=== PATIENT | female | born 1990 | race Two or more races ===

== ENCOUNTER 2025-09-22 19:12 | Emergency (ER) | payer OTHER ==
[~2025-09-22] VITALS: Ht 157.5 cm; Wt 68.0 kg
[2025-09-22] MEDS ORDERED: PRENATAL + DHA1 EAC1 PO (19:57)
[2025-09-22] MEDS ORDERED: FAMOTIDINE/PF 20 MG in 0.9 % SODIUM CHLORIDE 8 ML IV PUSH ONE (21:45)
[2025-09-22] MEDS ORDERED: 0.9 % SODIUM CHLORIDE 1,000 ML IV SCH (21:45)
[2025-09-22] MEDS ORDERED: ACETAMINOPHEN 500 MG GEL..CAP PO ONE ×2 (21:45→21:48)
[2025-09-22] MEDS ORDERED: ONDANSETRON HCL 4 MG in 0.9 % SODIUM CHLORIDE 50 ML IV ONE (21:45)
[2025-09-22] MEDS ORDERED: ONDANSETRON HCL 2 MG/ML VIAL ONE (21:48)
[2025-09-22] MEDS ORDERED: FAMOTIDINE/PF 20 MG/2 ML VIAL ONE (21:49)
[2025-09-22 22:06] LABS: BASO % 0.6 % (0.1-1.2); EOS # 0.23 (0.04-0.54); EOS % 2.2 % (0.7-7.0); LYMPH # 2.23 (1.18-3.74); LYMPH % 21.8 % (19.3-53.1); MEAN PLATELET VOLUME 10.60 fl (9.4-12.4); MONO # 0.62 (0.24-0.82); MONO % 6.1 % (4.7-12.5); NEUT # 7.08 (1.56-6.13); NEUT % 69.1 % (34.0-71.1); RED CELL DISTRIBUTION WIDTH 12.2 % (11.6-14.4)
[2025-09-22 22:27] LABS: INR < 0.93
[2025-09-22 23:01] LABS: ALT/SGPT 19.0 U/L (12-78); AST/SGOT 13.0 U/L (15-37); BILIRUBIN TOTAL 0.4 mg/dL (0.3-1.2); BUN CREA RATIO 16.0 (7.0-25.0); CREATININE SERUM 0.57 mg/dL (0.55-1.02); GFR 121.41; GLOBULINA 3.7 G/DL (2.4-3.5); GLUCOSE FASTING 92.0 mg/dL (65-100); OSMOLALITY SERUM 278.0 MOSM/KG (275-295)
[2025-09-22 23:13] LABS: URINE APPEARANCE Clear; URINE BILIRRUBIN Negative (NEGATIVE); URINE BLOOD Negative; URINE COLOR Yellow; URINE GLUCOSE Negative (NEGATIVE); URINE KETONE Negative (NEGATIVE); URINE LEUKOCYTE Negative; URINE NITRATE Negative; URINE PROTEIN Negative (NEGATIVE); URINE UROBILINOGEN 0.2 E.U./dl
[2025-09-22 23:18] LABS: URINE BACTERIA 219.5 uL (0.0-1933); URINE EPITHELIAL CELLS 5.2 uL (0.0-38.8); URINE RBC 7.7 uL (0.0-20.8); URINE WBC 3.0 uL (0.0-23.2)
[2025-09-22 23:32] LABS: URINE CAST 0.00 uL (0.0-1.40)
== END 2025-09-23 04:23 | disposition home or self-care (01) ==
LOC: ER 19:13
PROVIDERS: General Practice
DX: O26.899 Other specified pregnancy related conditions, unspecified trimester (principal); Z3A.09 9 weeks gestation of pregnancy; R10.9 Unspecified abdominal pain; R10.20 Pelvic and perineal pain unspecified side